=== PATIENT | female | born 1960 | race Caucasian/White ===

== ENCOUNTER 2024-12-25 10:22 | Emergency (ER) | payer OTHER, SELFPAY ==
[2024-12-25 10:27] VITALS: BP 161/86
--- NOTE | 2024-12-25 10:35 | ED.GENMED ---
ED Provider Triage
-
Patient seen by provider in Triage?: Seen in Triage
64-year-old female with a history of chronic constipation, IBS presents for constipation for the last 3 days. She says she has been having difficulty for about a week or 2 off-and-on but until 3 days ago was still able to move her bowels. She
takes daily Senokot and has lactulose as needed. Patient says she took 1 dose of lactulose this morning and had a small bite BM that was very tiny and hard. Since she has not gone. She has not had any increased abdominal distention or nausea and
vomiting but has some discomfort. She feels like she needs to go. She is still able to eat. Patient has come to the ER once previously for constipation and had an enema with success. She did not know she could try this at home
A medical screening examination has been initiated by a qualified medical provider. Based on the assessment performed at this time, it has been determined that an emergent medical condition may exist and the patient has been informed that further
medical evaluation and possible additional diagnostic testing may be needed.
HPI: This is a medical evaluation conducted in person to initiate diagnostic evaluation and provide initial therapeutics. Please see further documentation by the treating clinician.
GENERAL: Alert , in no apparent distress
ENT: No visible abnormalities
LUNGS: No acute respiratory distress
Abdomen: Nondistended, normal bowel sounds, nontender
NEUROLOGICAL: Alert and oriented
SKIN: Skin intact. No visible changes.
MUSCULOSKELETAL: Moving extremities normally
PSYCH: Normal and appropriate interaction.
64-year-old female with a history of constipation presents for constipation for the last 3 days. She has had 1 previous abdominal surgery. She is not having any nausea vomiting or fever. Patient has not tried anything to help her constipation
other than her normal medications.
Her vitals are stable, she is well-appearing, nontender abdomen. Will start with a plain x-ray, suspect patient will either need an enema or oral laxatives
History of Present Illness
General
Chief Complaint: Bowel Problem
Source: patient
Exam Limitations: none
Time Seen by Provider: 12/25/24 11:16
Nursing documentation reviewed up to this point in time: agreed with
History of Present Illness
History of Present Illness:
64-year-old female with a history of chronic constipation, IBS presents for constipation for the last 3 days. She says she has been having difficulty for about a week or 2 off-and-on but until 3 days ago was still able to move her bowels. She
takes daily Senokot and has lactulose as needed. Patient says she took 1 dose of lactulose this morning and had a small bite BM that was very tiny and hard. Since she has not gone. She has not had any increased abdominal distention or nausea and
vomiting but has some discomfort. She feels like she needs to go. She is still able to eat. Patient has come to the ER once previously for constipation and had an enema with success. She did not know she could try this at home
Past History
Past History
ED Past Medical History: Other (Chronic constipation)
ED Past Surgical History: Gynecological (Laparoscopy. Ovarian cyst)
Social History
Tobacco: Non-smoker
Alcohol: Occasional
Personal: Single
Living: with family
Review of Systems
Review of Systems
Allergies reviewed?: Yes
All Other Systems: Not applicable
Phy Exam
Physical Exam
Physical Exam:
GENERAL: Alert , in no apparent distress
EYE: pupils equal and reactive
NECK: Supple
ENT: o/p clr, mmm.
CARDIAC: Regular rate and rhythm .
LUNGS: Clear breath sounds bilaterally, no acute respiratory distress, no wheezes/rales/rhonchi
ABDOMEN: Soft, hypoactive bowel sounds, nondistended, nontender no r/g, no cvat,
NEUROLOGICAL: Alert and oriented, no focal neuro deficits
SKIN: Warm and dry, skin intact.
MUSCULOSKELETAL: No edema, well perfused.
PSYCH: Normal and appropriate interaction.
Course
Orders/Labs/Results
Orders:
Orders
12/25/24 10:45
Obstruct Series W/PA Chest [CR Obstruct Series W/pa Chest] Urgent
Comment:
Reason For Exam: constipation
Vital Signs
Initial and Last Documented VS:
Initial Vital Signs
Temp Pulse Resp BP Pulse Ox
37.1 C 79 16 161/86 98
12/25/24 10:12/25/24 10:12/25/24 10:12/25/24 10:12/25/24 10:27
Last Documented Vital Signs
Temp Pulse Resp BP Pulse Ox
37.1 C 79 16 161/86 98
12/25/24 10:12/25/24 10:12/25/24 10:12/25/24 10:12/25/24 10:27
MDM/Problems Addressed
Differential Diagnosis Includes:
Constipation, bowel obstruction, fecal impaction
MDM/Problems Addressed:
64-year-old female with a history of chronic constipation on daily Senokot presents for increasing constipation over the last week or so and no BM in 3 days. She tried 1 extra dose of lactulose and that was her last dose today. She does small BM
but nothing significant and feels that she needs to go. She is not having any vomiting but did feel little bit nauseated so she wanted to get ahead of it. Patient's been here once previously and had an enema with success. Patient says she did not
try an enema at home. On exam she is well-appearing, comfortable, nondistended, no tenderness, hyperactive bowel sounds.
Patient's x-ray was independently reviewed and shows moderate stool in her colon but no significant fecal impaction/rectal impaction and no signs of a bowel obstruction. She was given the option to wait and have an enema versus try taking oral
medications at home and an enema self-administered which she feels comfortable with.
Will tell her to try MiraLAX twice a day for the next 2 to 3 days in a row and advance to magnesium citrate if no BM. She can also do a Fleet enema
*Critical Care Note
Total Time (30-74mins, 75-104mins- exclusive of procedures): Not Applicable
ED Attending Note
-
Portions of this chart may have been created with voice recognition software.� Occasional wrong word or��sound alike� substitutions may have occurred due to the inherent limitations of voice recognition software.
Discharge Plan
Departure
Patient Disposition: Home (Routine Discharge)
Date of Disposition: 12/25/24
Time of Disposition: 12:06
Patient with high blood pressure during this ER visit?: No
Condition: Fair
Covid-19: Not Applicable
Discharge Problem:
Constipation
Instructions: Constipation, Adult (DC)
Prescriptions:
No Action
polyethylene glycol 3350 17 GRAMS powder in packet
17 grams PO DAILY
bisacodyl 5 MG tablet,delayed release (DR/EC)
10 mg PO DAILY
Activity Restrictions/Additional Instructions:
Try a Fleet enema when you get home and see if this helps at all. But you may need just the oral medications based on your x-ray. Try MiraLAX twice a day, 1 capful in 8 ounces of water or juice twice a day for the next 2 to 3 days in a row. If
you feel like you have a significant bowel movement then stop. If you feel like this does not help after 2 or 3 days you can stop this and try magnesium citrate which is [id number]. He would do half the bottle and wait 12 hours and then try
the other half a bottle if he did not have a BM. For daily stool softening you should try Metamucil, it is the best stool softener on the market. Return for significant abdominal pain, distention, vomiting, fever etc.
Interventions
Interventions:
*Risk Screen - Suicide Last Done: 12/25/24 10:27
*Neglect/Abuse Screening Last Done: 12/25/24 10:27
Discharge Date and Time
Print Language: IRISH
== END 2024-12-25 12:32 | disposition home or self-care (01) ==
LOC: EMR 10:22
PROVIDERS: EMERGENCY PHYSICIAN Emergency Medicine; FAMILY PHYSICIAN Family Medicine
DX: K59.00 Constipation, unspecified (principal); K58.9 Irritable bowel syndrome, unspecified; Z79.899 Other long term (current) drug therapy
CPT/HCPCS: 99283; 74022